=== PATIENT | female | born 1955 | race Caucasian/White ===

== ENCOUNTER → 2023-12-26 07:36 | Outpatient (CLI) | payer OTHER, SELFPAY ==
--- NOTE | 2023-12-26 | DI.NM.S_ITS ---
PROCEDURE: NM HIDA WITH CCK PHARMACEUTICAL: 5.2 mCi Tc-99m mebrofenin IV; 2.2 mcg CCK IV. INDICATIONS: Right upper quadrant pain TECHNIQUE: Following intravenous administration of Tc-99m mebrofenin, sequential anterior abdominal images were obtained. To evaluate the contractile response of the gallbladder in response to Cholecystokinin (CCK), sincalide (0.02 ?g/kg) was administered by slow intravenous infusion approximately 60 minutes after the administration of the radiopharmaceutical. Sequential imaging was continued for 30 minutes after the start of CCK infusion. Gallbladder ejection fraction was calculated. COMPARISON: None. FINDINGS: Biliary scan: There is normal tracer uptake and excretion by the liver. There is normal visualization of the intrahepatic ducts, common bile duct, and normal tracer transit into the duodenum. Gallbladder is not visualized in the initial 60 minutes sequence through images. On subsequent imaging from cm 5-to 90 minutes, gallbladder is present. CCK stimulation: There is poor contractile response of the gallbladder to CCK infusion. The calculated gallbladder ejection fraction is 14% ; normal values are above 35%. The patient experienced intense pain during CCK infusion. It has been shown that any patient abdominal pain after CCK administration is related to the rate of CCK injection, rather than to any underlying gallbladder disease (Clinical Nuclear Medicine 2012; 37: 63-70. Journal of Nuclear Medicine 2014; 55: 1-9). IMPRESSION: 1. There is delayed filling of gallbladder. Gallbladder is small and demonstrates poor contractile response of gallbladder to CCK infusion. The finding suggests chronic cholecystitis or gallbladder dyskinesia. 2. Gallbladder ejection fraction is 14%. The patient experienced intense abdominal pain during CCK infusion. Dictated by: Asha Conti M.D. on 12/26/2023 at 11:07 Approved by: Asha Conti M.D. on 12/26/2023 at 11:15
== END ==
PROVIDERS: PCP Nurse Practitioner Family; Referring Provider Nurse Practitioner Family; Visit Provider Nurse Practitioner Family
DX: R10.11 Right upper quadrant pain (principal); R93.3 Abnormal findings on diagnostic imaging of other parts of digestive tract
CPT/HCPCS: 78227; A9537; J2805